=== PATIENT | male | born 1990 | race Caucasian/White ===

== ENCOUNTER 2018-01-14 08:51 | Emergency (ER) | payer SELFPAY ==
[~2018-01-14] VITALS: Ht 182.9 cm; Wt 100.0 kg
[2018-01-14 08:53] VITALS: BP 128/59; PULSE 72; RESP 16; TEMP 97.5; O2SAT 99
--- NOTE | 2018-01-14 09:27 | PD ---
HPI Chief Complaint: GI Complaint Time Seen by Provider: 09:04 Travel History International Travel<30 days: Yes Contact w/Intl Traveler<30days: No Traveled to known affect area: No History of Present Illness HPI Patient 27-year-old male presents emergency department for evaluation of left lower quadrant abdominal pain and gas. Patient states she has developed a symptoms over the past 24-48 hours, states he recently had blood work done [facility] at his request states that no ordering physician ordered it and it was all normal. He is brought lab results with him and he had a CBC CMP lipase and urinalysis all of which were unremarkable. He denies any nausea vomiting diarrhea constipation blood in stool. He is wanted to make sure it was not anything life-threatening as he [place] a lot of time on the road. Denies any dysuria. Denies any flank pain. States symptoms are mild, left lower quadrant , no radiation, associated signs symptoms in context as above per [facility] Past Medical History Medical History: Denies Significant Hx Past Surgical History Surgical History: No Previous Surgery Family History Family History: Negative Social History Tobacco Use: No Allergies-Medications (Allergen,Severity, Reaction): Coded Allergies: No Known Allergies (Verified Allergy, Unknown, 01/14/18) Reported Meds & Prescriptions Reported Meds & Active Scripts Active No Active Prescriptions or Reported Medications Review of Systems Except as stated in HPI: all other systems reviewed are Neg Physical Exam Narrative GENERAL: anxiety well-developed well-nourished no obvious distress SKIN: Focused skin assessment warm/dry. HEAD: Atraumatic. Normocephalic. EYES: Pupils equal and round. No scleral icterus. No injection or drainage. ENT: No nasal bleeding or discharge. Mucous membranes pink and moist. NECK: Trachea midline. No JVD. CARDIOVASCULAR: Regular rate and rhythm. No murmur appreciated. RESPIRATORY: No accessory muscle use. Clear to auscultation. Breath sounds equal bilaterally. GASTROINTESTINAL: Abdomen soft, non-tender, nondistended. Hepatic and splenic margins not palpable. No rebound no percussive tenderness, no CVA tenderness, no tenderness to the abdomen or pelvis peer MUSCULOSKELETAL: No obvious deformities. No clubbing. No cyanosis. No edema. NEUROLOGICAL: Awake and alert. No obvious cranial nerve deficits. Motor grossly within normal limits. Normal speech. PSYCHIATRIC: Appropriate mood and affect; insight and judgment normal. Data Data Last Documented VS Vital Signs Date Time Temp Pulse Resp B/P (MAP) Pulse Ox O2 Delivery O2 Flow Rate FiO2 01/14/18 09:08 16 01/14/18 08:53 97.5 72 128/59 (82) 99 Orders Orders Ed Discharge Order (01/14/18 09:28) MDM Medical Decision Making Medical Screen Exam Complete: Yes Emergency Medical Condition: Yes Differential Diagnosis Left lower quadrant abdominal pain, colitis, severe complicated colitis unlikely , peritonitis or an acute abdomen is highly unlikely peer Narrative Course Patient room to the emergency department, he appears well in obvious distress, his symptoms are quite mild and his abdomen exam is this is something that needs to be repeated at this time, discussed Intermedic management return to ED criteria. He is happy with this. He is stable for discharge Diagnosis Primary Impression: Abdominal cramping in left lower quadrant Patient Instructions: Acute Abdominal Pain (DC), General Instructions Additional Instructions: Try peptobismol over the counter. If you notice any concerning symptoms you are always welcome to return to the ER. Scripts No Active Prescriptions or Reported Meds Disposition: 01 DISCHARGE HOME Condition: Stable Akash Howe MD Jan 14, 2018 09:27
== END 2018-01-14 09:59 | disposition home or self-care (01) ==
LOC: NEPD 08:51
DX: R10.32 Left lower quadrant pain (principal)
CPT/HCPCS: 99282

== ENCOUNTER 2018-01-17 17:09 | Emergency (ER) | payer SELFPAY ==
[~2018-01-17] VITALS: Ht 185.4 cm; Wt 95.0 kg
[2018-01-17 17:16] VITALS: BP 119/65; PULSE 73; RESP 16; TEMP 98.8; O2SAT 97
[2018-01-17 19:53] VITALS: BP 150/75; PULSE 68; RESP 16; O2SAT 100
--- NOTE | 2018-01-17 21:04 | PD ---
HPI Chief Complaint: GI Complaint Time Seen by Provider: 20:29 Travel History International Travel<30 days: No Contact w/Intl Traveler<30days: No Traveled to known affect area: No History of Present Illness HPI 27yo M with no PMH presents to the ED with c/o black stool for 2 days. Pt was seen here on 01/14/18 for left lower abdominal pain and at the time just had lab drawn at [facility]. The ED physician reviewed the test and CBC, CMP, lipase and urinalysis was negative so send pt home. Pt called his doctor in [place] regarding black stool and was told that he will need endoscopy and colonoscopy for blood in stool. PFSH Past Medical History Medical History: Denies Significant Hx Diminished Hearing: No Immunizations Current: Yes Tetanus Vaccination: > 5 Years Influenza Vaccination: No Past Surgical History Surgical History: No Previous Surgery Social History Alcohol Use: Yes (OCCASIONAL) Tobacco Use: No Substance Use: No Allergies-Medications (Allergen,Severity, Reaction): Coded Allergies: No Known Allergies (Verified Allergy, Unknown, 01/14/18) Reported Meds & Prescriptions Reported Meds & Active Scripts Active No Active Prescriptions or Reported Medications Review of Systems Except as stated in HPI: all other systems reviewed are Neg Physical Exam Narrative GENERAL: 27yo M not in distress. SKIN: Focused skin assessment warm/dry. HEAD: Atraumatic. Normocephalic. EYES: Pupils equal and round. No scleral icterus. No injection or drainage. ENT: No nasal bleeding or discharge. Mucous membranes pink and moist. NECK: Trachea midline. No JVD. CARDIOVASCULAR: Regular rate and rhythm. No murmur appreciated. RESPIRATORY: No accessory muscle use. Clear to auscultation. Breath sounds equal bilaterally. GASTROINTESTINAL: Abdomen soft, non-tender, nondistended. : No ttp bilateral testicles. No hernia palpated. RECTAL: Dark brown/black stool, hemaprompt negative. MUSCULOSKELETAL: No obvious deformities. No clubbing. No cyanosis. No edema. NEUROLOGICAL: Awake and alert. No obvious cranial nerve deficits. Motor grossly within normal limits. Normal speech. PSYCHIATRIC: Appropriate mood and affect; insight and judgment normal. Data Data Last Documented VS Vital Signs Date Time Temp Pulse Resp B/P (MAP) Pulse Ox O2 Delivery O2 Flow Rate FiO2 01/17/18 19:53 68 16 150/75 (100) 100 Room Air 01/17/18 17:16 98.8 MDM Medical Decision Making Medical Screen Exam Complete: Yes Emergency Medical Condition: Yes Differential Diagnosis Black stool from intermittent GI bleed or colitis vs. enteritis vs. IBS Narrative Course 27yo M here with c/o black stool for 2 days. Pt had left lower abdominal pain and was evaluated here on 01/14. Pt said his symptoms are actually improved. Said he no longer has abdominal pain, nausea, vomiting or any urinary complaints. Pt is worried about the black stool so decided to come to the ED. Pt is very well appearing and physical exam is unremarkable. Hemaprompt is negative. Instructed pt to follow up with GI as outpatient if needed. Return precautions given. [facility] Point of Care Internal Pos. & Neg. Controls: Passed Fecal Specimen Occult Blood: Negative Diagnosis Primary Impression: Black stool Referrals: Zeinab Camacho MD as needed Patient Instructions: General Instructions Departure Forms: Tests/Procedures Additional Instructions: Please follow up with [facility] as outpatient. Return to the ED if symptoms worsen. Med/Other Pt SpecificInfo: No Change to Meds Scripts No Active Prescriptions or Reported Meds Disposition: 01 DISCHARGE HOME Condition: Stable Kia Dc DO Jan 17, 2018 21:04
== END 2018-01-17 21:49 | disposition home or self-care (01) ==
LOC: NEPD 17:09
DX: K92.1 Melena (principal); R10.32 Left lower quadrant pain
CPT/HCPCS: 99281